=== PATIENT | female | born 1970 | race Caucasian/White ===

== ENCOUNTER → 2017-04-08 | Outpatient (CLI) | payer MEDICAID ==
--- NOTE | 2017-04-21 23:49 | ONC ---
[place] [address] RADIATION ONCOLOGY NOTE Name: TRINIDAD HOOVER Room: [facility]#: [id number] Admission: 04/08/17 Attend Phys: Rich Anderson MD Discharge: Date of : 68 Report #: [id number] THIS REPORT FOR: //name// CC: Rich Feldman DO DATE OF SERVICE: 04/08/2017 REFERRING PHYSICIANS: Include Obdulio Clemente MD and León Feldman DO. [facility] phone is [phone]. PRIMARY SITE AND HISTOPATHOLOGY: The patient received radiation therapy as part of breast-conservation therapy for a T1b N0 M0 invasive ductal carcinoma that involved the right breast. She completed radiation therapy on 08/05/2014. INTERVAL NOTE: The patient denied having any nipple discharge from the right breast. She denied having nipple discharge from the left breast. She denied having any suspicious palpable masses in the left breast. She denied having any suspicious palpable masses in the right breast. She indicated that she does have some joint swelling in her hands, her knee and ankles and that she has been referred to services delivery driver for further evaluation who she will be seeing in 05/2017. MEDICATIONS: Include tamoxifen. SOCIAL HISTORY: Cigarettes, she smoked about 2 cigarettes a week for about 6 months. She quit smoking around 1994. REVIEW OF SYSTEMS: RESPIRATORY: Breathing was baseline. She was not short of breath. MUSCULOSKELETAL: She had good range of motion of her upper extremities. PHYSICAL EXAMINATION: With my nurse, Renetta Deal, present: VITAL SIGNS: The patient weighed 181.2 pounds on 04/08/2017, 161 pounds on 03/26/2016 and on 04/08/2017, blood pressure was 108/67, pulse 84. LYMPH NODES: She had no palpable cervical, supraclavicular or axillary lymphadenopathy. HEART: Had a regular rate and rhythm without murmur. LUNGS: were clear to auscultation. BREASTS: Right breast had no suspicious palpable masses. Left breast had no suspicious palpable masses. ABDOMEN: Not tender, spleen was not palpable, liver was at the costal margin. RADIOLOGIC DATA: The patient had a bilateral mammogram on 03/24/2017 [place] [address] RADIATION ONCOLOGY NOTE Name: SNEHATRINIDAD J Room: [facility]#: [id number] Admission: 04/08/17 Attend Phys: Rich Anderson MD Discharge: Date of : 68 Report #: [id number] revealed benign findings and routine annual screening was recommended. ASSESSMENT AND PLAN: 1. History of right breast cancer- There is no evidence of breast cancer at this time. The patient sees her medical oncologist, Dr. Clemente, about every 3 months and he prescribes tamoxifen for the patient. She was given a requisition for a bilateral mammogram to be done either in 02/2018 or 03/2018. She was asked to schedule a follow up appointment to see me afterwards. 2. Joint swelling- The patient indicates she is scheduled to see a services delivery driver in 05/2017 for further evaluation. 3. History of cigarette smoking- The patient quit smoking around 1994 and has been able to abstain from smoking. Thank you for allowing me to participate in the care of this patient. <ELECTRONICALLY SIGNED> By: Rich Anderson MD 04/21/17 [id number] Anderson MD /nt
== END ==
LOC: M.RTH 09-24 14:15
DX: Z08 Encounter for follow-up examination after completed treatment for malignant neoplasm (principal); M25.48 Effusion, other site; Z87.891 Personal history of nicotine dependence

== ENCOUNTER → 2018-04-21 | Outpatient (CLI) | payer MEDICAID ==
--- NOTE | 2018-04-22 23:55 | ONC ---
[place] [address] RADIATION ONCOLOGY NOTE Name: TRINIDAD HOOVER Room: [facility]#: [id number] Admission: 04/21/18 Attend Phys: Rich Anderson MD Discharge: Date of : 68 Report #: [id number] THIS REPORT FOR: //name// CC: Rich Hernandez. DATE OF SERVICE: 04/21/2018 REFERRING PHYSICIANS: Include Obdulio Clemente MD; Refugio Hernandez MD from Rheumatology. [facility] phone is [phone]. PRIMARY SITE AND HISTOPATHOLOGY: The patient received radiation therapy as part of breast-conservation therapy for a [id number] invasive ductal carcinoma that involved the right breast. She completed radiation treatments on 08/05/2014. INTERVAL NOTE: The patient denied having any nipple discharge from the right breast. She denied having any nipple discharge from the left breast. She denied having any suspicious palpable masses involving the left breast. She denied having any suspicious palpable masses involving the right breast. She has what appears to be arthritic pain in her right hand and left hand. She said that she was seen a associate professor of radiology by the name of Dr. Refugio Hernandez. She says that she may be having an operation on her hand. MEDICATIONS: Include tramadol, Motrin, and she is also taking tamoxifen. SOCIAL HISTORY: Cigarettes- she smoked about 2 cigarettes a week for about 6 months. She quit smoking around 1994. REVIEW OF SYSTEMS: RESPIRATORY: Breathing was baseline. She was not short of breath. MUSCULOSKELETAL: She had good range of motion of her upper extremities. PHYSICAL EXAMINATION: With my nurse, Renetta Deal, present: VITAL SIGNS: The patient weighed 180.8 pounds on 04/21/2018. She was 181.2 pounds on 04/08/2017. On 04/21/2018, blood pressure was 106/64, pulse 87, respirations 18, oxygen saturation 100% on room air. LYMPH NODES: The patient had no palpable cervical, supraclavicular or axillary lymphadenopathy. HEART: Had a regular rate and rhythm without murmur. LUNGS: were clear to auscultation. BREASTS: Right breast had no suspicious palpable masses. Left breast had no suspicious palpable masses. ABDOMEN: Not tender, spleen was not palpable. [place] [address] RADIATION ONCOLOGY NOTE Name: TRINIDAD HOOVER Room: [facility]#: [id number] Admission: 04/21/18 Attend Phys: Rich Anderson MD Discharge: Date of : 68 Report #: [id number] RADIOLOGIC DATA: The patient had a bilateral mammogram on 03/22/2018 at [facility] and that revealed benign findings and the radiology report recommended a followup mammogram in 12 months. ASSESSMENT AND PLAN: 1. History of right breast cancer- There is no evidence of breast cancer at this time and the patient is still taking tamoxifen and that is managed by her medical oncologist, Dr. Clemente. She has an appointment with Dr. Clemente on 07/05/2018. The patient was given a requisition for a bilateral mammogram in about 1 year. She was asked to schedule a followup appointment to see me afterwards. 2. Arthritis of the hands- She said that she was seeing a associate professor of radiology and that she is scheduled for surgery because of chronic hand pain. 3. Pain control-She has pain from the arthritis in her hands. She takes tramadol and Motrin for that issue and that is managed by her referring physicians. Thank you for allowing me to participate in the care of this patient. <ELECTRONICALLY SIGNED> By: Rich Anderson MD 04/22/18 2355 1229 [id number] Anderson MD /nt
== END ==
LOC: M.RTH 04-14 09:30
DX: Z08 Encounter for follow-up examination after completed treatment for malignant neoplasm (principal); M13.842 Other specified arthritis, left hand; M13.841 Other specified arthritis, right hand; Z85.3 Personal history of malignant neoplasm of breast; Z79.899 Other long term (current) drug therapy

== ENCOUNTER → 2019-04-20 | Outpatient (CLI) | payer MEDICAID ==
--- NOTE | 2019-04-21 17:56 | ONC ---
[place] [address] RADIATION ONCOLOGY NOTE Name: TRINIDAD HOOVER Room: [facility].#: [id number] Admission: 04/20/19 Attend Phys: Rich Anderson MD Discharge: Date of : 68 Report #: [id number] THIS REPORT FOR: //name// CC: Rich Hernandez DATE OF SERVICE: 04/20/2019 [facility] RADIATION ONCOLOGY FOLLOWUP NOTE REFERRING PHYSICIANS: Obdulio Clemente M.D. and Refugio Hernandez M.D. PHONE NUMBER: [facility] phone is [phone]. PRIMARY SITE AND HISTOPATHOLOGY: The patient received radiation therapy as part of breast-conservation therapy for a [id number] invasive ductal carcinoma that involved the right breast. INTERVAL NOTE: The patient denied having any nipple discharge from the right breast. She denied having any nipple discharge from the left breast. The patient denied having any suspicious palpable masses involving the right breast. The patient denied having any suspicious palpable masses involving the left breast. The patient denied having any upper extremity edema. She has issues with arthritic pain in her left wrist. She has been seeing a critical care nurse practitioner for that. MEDICATIONS: Include tramadol, Motrin, and she says she will be completing 5 years of tamoxifen, which has been prescribed by her medical oncologist, Dr. Clemente. SOCIAL HISTORY: Cigarettes, she smoked about 2 cigarettes a week for about 6 months. She quit smoking around 1994. REVIEW OF SYSTEMS: RESPIRATORY: Breathing was baseline. She was not short of breath. MUSCULOSKELETAL: She had good range of motion of her upper extremities. PHYSICAL EXAMINATION: With my nurse, Renetta Deal, present: VITAL SIGNS: The patient weighed 189.2 pounds on 04/20/2019. She weighed 180.8 pounds on 04/21/2018. Then on 04/20/2019, the patient's blood pressures was 105/65, pulse 72, respirations 16, and oxygen saturation was 100% on room air. LYMPH NODES: The patient had no palpable cervical or supraclavicular [place] [address] RADIATION ONCOLOGY NOTE Name: TRINIDAD HOOVER Room: [facility]#: [id number] Admission: 04/20/19 Attend Phys: Rich Anderson MD Discharge: Date of : 68 Report #: [id number] HEART: Had a regular rate and rhythm without murmur. LUNGS: were clear to auscultation. BREASTS: Right breast had no suspicious palpable masses. Left breast had no suspicious palpable masses. ABDOMEN: Not tender. Spleen was not palpable. Liver was at the costal margin. EXTREMITIES: Had no clubbing, cyanosis, or edema. RADIOLOGIC DATA: From [facility] [place], her mammogram on 03/15/2019 revealed benign findings. ASSESSMENT AND PLAN: 1. History of right breast cancer- There is no evidence of breast cancer at this time. The patient is scheduled for an appointment with her medical oncologist, Dr. Clemente, on 01/04/2020. I gave the patient a requisition to have a mammogram done around 02/2020 and asked the patient to follow up with me in about 1 year. 2. Left wrist pain, probably due to arthritis- The patient was offered a referral to the oncology rehabilitation physician, Dr. Jenny Solo, to evaluate her wrist and offered suggestions on management of that left wrist pain. She wanted to go ahead and proceed with that referral, so she was referred to Dr. Jenny Solo, to evaluate the left wrist. 3. Pain control- Right now, she is taking tramadol and Motrin for pain control and that is managed by her referring physicians. Thank you for allowing me to participate in the care of this patient. <ELECTRONICALLY SIGNED> By: Rich Anderson MD 04/21/19 1756 [id number] [id number] Anderson MD /nt
== END ==
LOC: M.RTH 09:00
DX: Z08 Encounter for follow-up examination after completed treatment for malignant neoplasm (principal); Z85.3 Personal history of malignant neoplasm of breast; M25.532 Pain in left wrist

== ENCOUNTER → 2020-05-23 | Outpatient (CLI) | payer MEDICAID ==
--- NOTE | ~2020-05-23 | ONC ---
[address] [address] RADIATION ONCOLOGY NOTE Name: TRINIDAD HOOVER Room: [facility].#: [id number] Admission: 05/23/20 Attend Phys: Rich Anderson MD Discharge: Date of : 68 Report #: [id number] THIS REPORT FOR: cc: FAM - No family physician/PCP FAM - No family physician/PCP ~ Rich Anderson MD DATE OF SERVICE: 05/23/2020 RADIATION ONCOLOGY FOLLOWUP NOTE REFERRING PHYSICIANS: Obdulio Clemente MD; Dr. Refugio Hernandez and [facility] phone is [phone]. PRIMARY SITE AND HISTOPATHOLOGY: The patient received radiation therapy as part of breast conservation therapy for T1b N0 M0 invasive ductal carcinoma that involved the right breast. She received 5040 cGy to the right breast and 180 cGy daily fractions followed by a 1000 cGy right breast lumpectomy bed boost and 200 cGy fractions were completed on 08/05/2014. She then went on to receive tamoxifen. INTERVAL NOTE: The patient denied having any nipple discharge from the right breast. She denied having any nipple discharge from the left breast. The patient denied having any suspicious palpable masses involving the right breast. The patient denied having any suspicious palpable masses involving the left breast. The patient has indicated that she had an operation, orthopedic procedure on her wrists and that the pain that she used to have in the wrist area improved significantly, so she is no longer taking tramadol. MEDICATIONS: None. She had completed 5 years of tamoxifen, so that was discontinued. SOCIAL HISTORY: Cigarettes, she smoked about 2 cigarettes a week for about 6 months. She quit smoking around 1994. REVIEW OF SYSTEMS: RESPIRATORY: Breathing was baseline. She was not short of breath. MUSCULOSKELETAL: She had good range of motion of her upper extremities. PHYSICAL EXAMINATION: With my nurse, Renetta Deal, present: VITAL SIGNS: The patient weighed 193.8 pounds on 05/23/2020 and 189.2 pounds on 04/20/2019 and on 05/23/2020, blood pressure was 114/66, pulse 91, oxygen saturation 96%. LYMPH NODES: She had no palpable cervical, supraclavicular or axillary lymphadenopathy. Again, she was seen with my nurse, Renetta Deal, present. BREASTS: The right breast had no suspicious palpable masses. The left breast [place] [address] RADIATION ONCOLOGY NOTE Name: TRINIDAD HOOVER Room: [facility]#: [id number] Admission: 05/23/20 Attend Phys: Rich Anderson MD Discharge: Date of : 68 Report #: [id number] HEART: Had a regular rate and rhythm without murmur. LUNGS: Clear to auscultation. ABDOMEN: Not tender, spleen was not palpable. Liver was at the costal margin. EXTREMITIES: Had no clubbing, cyanosis or edema. RADIOLOGIC DATA: From [facility] imaging on 03/12/2020, there was no mammographic evidence of malignancy. Routine annual screening mammogram in one year was recommended. ASSESSMENT AND PLAN: 1. History of right breast cancer. There is no evidence of breast cancer at this time. The patient was given a requisition to have a mammogram in 02/2021 and she was offered a followup appointment to see me afterwards. She has an appointment with her medical oncologist, Dr. Clemente on 01/02/2021. 2. Arthritic pains in her wrist they have resolved after her orthopedic procedure and she is no longer taking tramadol. 3. Screening/immunizations: The patient was told that to discuss screening colonoscopy with her primary care physician and that since she is over the age of 50 that she would probably qualify for the shingles vaccine, which is Shingrix. Thank you for allowing me to participate in the care of this patient. By: [id number] Anderson MD /jessika
== END ==
LOC: M.RTH 09:00
PROVIDERS: ATTEND Radiology Radiation Oncology
DX: Z51.0 Encounter for antineoplastic radiation therapy (principal); Z86.000 Personal history of in-situ neoplasm of breast